=== PATIENT | male | born 1990 | race Asian ===

== ENCOUNTER 2021-03-07 18:34 | Emergency (ER) | payer SELFPAY ==
[2021-03-07 19:22] LABS: BASOPHIL 0.4 % (0-2); EOSINOPHIL 0.1 % (0-5); HCT 43.9 % (42.0-52.0); HGB 15.5 g/dl (13.2-18.0); LYMPHOCYTE 5.7 % (15-48); MCH 31.1 pg (25.0-31.0); MCHC 35.3 g/dL (32.0-36.0); MCV 88.2 fL (78.0-100.0); MONOCYTE 14.9 % (0-12); MPV 9.8 fL (6.0-9.5); NEUTROPHIL 78.5 % (41-80); NRBC 0; PLT 174 K/uL (150-400); RBC 4.98 M/uL (4.70-6.00); RDW 12.2 % (11.5-14.0); WBC 8.4 K/uL (4.0-10.5)
[2021-03-07 19:37] LABS: BUN/CREAT RATIO (CALC) 11.2 RATIO; CREATININE 1.34 mg/dL (0.67-1.17); POTASSIUM 4.1 mmol/L (3.5-5.1)
[2021-03-07 19:46] LABS: INFLUENZA A NAA NEGATIVE (NEGATIVE)
[2021-03-07 19:47] LABS: CORONAVIRUS 2019 SARS-COV-2 POSITIVE (NEGATIVE)
[2021-03-07 20:32] LABS: BILIRUBIN NEGATIVE (NEGATIVE); BLOOD TRACE-INTACT Ery/uL (NEGATIVE); CLARITY CLEAR (CLEAR); COLOR YELLOW (YELLOW); GLUCOSE (U) NORMAL (NORMAL); LEUKOCYTES NEGATIVE Leu/uL (NEGATIVE); NITRITE NEGATIVE (NEGATIVE); PROTEIN NEGATIVE (NEGATIVE); SPECIFIC GRAVITY 1.025 (1.001-1.030); UROBILINOGEN 0.2 mg/dL (0.2-1.0)
[2021-03-07 20:43] LABS: BACTERIA TRACE; SQUAMOUS EPITHELIAL CELLS RARE
== END 2021-03-07 21:31 | disposition home or self-care (01) ==
LOC: FER 18:34
PROVIDERS: Nurse Practitioner Family
DX: U07.1 COVID-19 (principal)
CPT/HCPCS: 36415; 80048; 81001; 85025; 99284; U0002